=== PATIENT | female | born 2005 | race Caucasian/White ===

== ENCOUNTER 2025-05-31 15:44 | Inpatient (IN) | payer OTHER ==
[~2025-05-31 15:44] MED LIST: Iopamidol-370 76% 500 ML MDV (1 ML CHARGE) ONE
[2025-05-31] MEDS ORDERED: Acetaminophen 500 MG TAB ONE (17:06)
[2025-05-31] MEDS ORDERED: cefTRIAXone (ROCEPHIN) 1 GM VIAL ONE (17:06)
[2025-05-31] MEDS ORDERED: Ketorolac Tromethamine 30 MG (1 mL) VIAL ONE ×2 (17:12→20:12)
[2025-05-31 17:20] LABS: #Basophils Less than 0.03 10x3/uL (0.0-0.2); #Eosinophils Less than 0.03 10x3/uL (0.0-0.7); #Monocytes 1.64 10x3/uL (0.11-0.59); #Neutrophils 13.68 10x3/uL (1.40-6.50); %Basophils 0.1 % (0.0-1.0); %Eosinophils 0.0 % (0.0-10.0); %Lymphocytes 7.0 % (28.0-48.0); %Monocytes 9.9 % (0.0-4.0); %Neutrophils 82.3 % (31.0-61.0); Hematocrit 38.6 % (36.0-47.0); Hemoglobin 13.5 g/dL (12.0-16.0); Mean Corpuscular Hemoglobin 31.8 pg (25.0-35.0); Mean Corpuscular Volume 90.8 fL (78.0-98.0); Platelet Count 288 10x3/uL (130-400); Red Blood Cell (RBC) Count 4.25 mill/uL (4.00-5.20); White Blood Cell (WBC) Count 16.62 10x3/uL (4.8-10.8)
[2025-05-31 17:33] LABS: Pregnancy Test - Urine (BHCG) Negative (Negative); Pregu Control Background? CLEAR/WHITE (CLR/WHITE); Pregu Control Bar Appear? YES (CONTROL BAR)
[2025-05-31 17:34] LABS: CAUTI Indications for Culture Dysuria,urgency,freq; Glucose, Urine (Dipstick) Normal (Negative); Leukocyte 500 Leu/uL (Negative); Protein, Urine (Dipstick) 50 mg/dL (Neg-Trace); Specific Gravity, Urine 1.015 (1.002-1.036); WBC/HPF Greater than 50 HPF (0-3)
[2025-05-31 17:34] LABS: ALT (SGPT) 47 U/L (Less than 34); AST (SGOT) 30 U/L (11-34); Albumin 4.4 g/dL (3.1-4.5); Alkaline Phosphatase 83 U/L (40-100); Anion Gap 13 mmol/L (10-20); BUN (Urea Nitrogen) 9 mg/dL (7.0-18.7); Bilirubin, Total 2.2 mg/dL (0.3-1.2); Calc. Creatinine Clearance 0 mL/min (70-130); Calcium 9.6 mg/dL (7.8-10.44); Carbon Dioxide 22 mmol/L (22-29); Chloride 103 mmol/L (98-107); Globulin 3.6 g/dL (2.4-3.5); Glucose 111 mg/dL (70-105); Potassium 3.4 mmol/L (3.5-5.1); Sodium 135 mmol/L (136-145)
[2025-05-31 17:35] LABS: Bacteria/HPF 1+ HPF (None Seen)
[2025-05-31 17:36] LABS: Urine Culture Reflex Yes Yes
[2025-05-31] MEDS: VANCOMYCIN 1.75 GM/350 ML Premix BAG IVPB SCH (23:31)
[2025-05-31] MEDS: Acetaminophen 325 MG TAB PO PRN (23:38)
[2025-05-31] MEDS: cefTRIAXone\\ROCEPHIN 1 GM in Sodium Chloride 0.9% 100 ML IVPB SCH (23:39)
[2025-06-01] MEDS: Ondansetron PF 4 MG/2 ML Vial IVP PRN
[2025-06-01 04:12] LABS: Chlam.trachomatis by PCR,Urine *Indeterminate (NotDetected); GC N.gonorrhoeae PCR,UrineVOID *Indeterminate (NotDetected)
[2025-06-01 04:17] LABS: #Basophils 0.03 10x3/uL (0.0-0.2); #Eosinophils Less than 0.03 10x3/uL (0.0-0.7); #Monocytes 1.32 10x3/uL (0.11-0.59); #Neutrophils 18.15 10x3/uL (1.40-6.50); %Basophils 0.1 % (0.0-1.0); %Eosinophils 0.0 % (0.0-10.0); %Lymphocytes 5.3 % (28.0-48.0); %Monocytes 6.3 % (0.0-4.0); %Neutrophils 87.4 % (31.0-61.0); Hematocrit 33.4 % (36.0-47.0); Hemoglobin 11.1 g/dL (12.0-16.0); Mean Corpuscular Hemoglobin 31.5 pg (25.0-35.0); Mean Corpuscular Volume 94.9 fL (78.0-98.0); Platelet Count 255 10x3/uL (130-400); Red Blood Cell (RBC) Count 3.52 mill/uL (4.00-5.20); White Blood Cell (WBC) Count 20.79 10x3/uL (4.8-10.8)
[2025-06-01 04:30] LABS: Anion Gap 12 mmol/L (10-20); BUN (Urea Nitrogen) 5 mg/dL (7.0-18.7); Calc. Creatinine Clearance 0 mL/min (70-130); Calcium 8.5 mg/dL (7.8-10.44); Carbon Dioxide 17 mmol/L (22-29); Chloride 112 mmol/L (98-107); Glucose 118 mg/dL (70-105); Potassium 3.4 mmol/L (3.5-5.1); Sodium 138 mmol/L (136-145)
[2025-06-01 04:51] VITALS: BMI 30.2
[2025-06-01] MEDS ORDERED: Ketorolac Tromethamine 30 MG (1 mL) VIAL IM PRN (07:14)
[2025-06-01] MEDS: Ketorolac Tromethamine 30 MG (1 mL) VIAL IVP PRN (09:27)
[2025-06-01 16:02] LABS: HIV (1/2) Antibody/Antigen NONREACTIVE (NonReactive); HIV 1/2 INDEX 0.06 S/CO (<1.00)
[2025-06-01] MEDS: cefTRIAXone\\ROCEPHIN 2 GM in Sodium Chloride 0.9% 100 ML IVPB SCH (21:57)
[2025-06-02 01:19] LABS: Chlam.trachomatis by PCR,Urine Not Detected (NotDetected); GC N.gonorrhoeae PCR,UrineVOID Not Detected (NotDetected)
[2025-06-02 06:40] LABS: #Basophils 0.03 10x3/uL (0.0-0.2); #Eosinophils Less than 0.03 10x3/uL (0.0-0.7); #Monocytes 1.21 10x3/uL (0.11-0.59); #Neutrophils 10.13 10x3/uL (1.40-6.50); %Basophils 0.2 % (0.0-1.0); %Eosinophils 0.1 % (0.0-10.0); %Lymphocytes 12.7 % (28.0-48.0); %Monocytes 9.2 % (0.0-4.0); %Neutrophils 77.3 % (31.0-61.0); Hematocrit 34.2 % (36.0-47.0); Hemoglobin 11.4 g/dL (12.0-16.0); Mean Corpuscular Hemoglobin 31.1 pg (25.0-35.0); Mean Corpuscular Volume 93.2 fL (78.0-98.0); Platelet Count 254 10x3/uL (130-400); Red Blood Cell (RBC) Count 3.67 mill/uL (4.00-5.20); White Blood Cell (WBC) Count 13.10 10x3/uL (4.8-10.8)
[2025-06-02 06:54] LABS: Anion Gap 10 mmol/L (10-20); BUN (Urea Nitrogen) 7 mg/dL (7.0-18.7); Calc. Creatinine Clearance 203 mL/min (70-130); Calcium 8.9 mg/dL (7.8-10.44); Carbon Dioxide 20 mmol/L (22-29); Chloride 110 mmol/L (98-107); Glucose 99 mg/dL (70-105); Potassium 3.4 mmol/L (3.5-5.1); Sodium 137 mmol/L (136-145)
[2025-06-03 05:58] LABS: #Basophils 0.03 10x3/uL (0.0-0.2); #Eosinophils Less than 0.03 10x3/uL (0.0-0.7); #Monocytes 0.73 10x3/uL (0.11-0.59); #Neutrophils 4.87 10x3/uL (1.40-6.50); %Basophils 0.4 % (0.0-1.0); %Eosinophils 0.1 % (0.0-10.0); %Lymphocytes 19.7 % (28.0-48.0); %Monocytes 10.3 % (0.0-4.0); %Neutrophils 68.9 % (31.0-61.0); Hematocrit 34.9 % (36.0-47.0); Hemoglobin 12.0 g/dL (12.0-16.0); Mean Corpuscular Hemoglobin 31.3 pg (25.0-35.0); Mean Corpuscular Volume 91.1 fL (78.0-98.0); Platelet Count 309 10x3/uL (130-400); Red Blood Cell (RBC) Count 3.83 mill/uL (4.00-5.20); White Blood Cell (WBC) Count 7.07 10x3/uL (4.8-10.8)
[2025-06-03 06:12] LABS: Anion Gap 13 mmol/L (10-20); BUN (Urea Nitrogen) 9 mg/dL (7.0-18.7); Calc. Creatinine Clearance 174 mL/min (70-130); Calcium 9.1 mg/dL (7.8-10.44); Carbon Dioxide 21 mmol/L (22-29); Chloride 109 mmol/L (98-107); Glucose 103 mg/dL (70-105); Potassium 3.5 mmol/L (3.5-5.1); Sodium 139 mmol/L (136-145)
[2025-06-03 12:05] VITALS: BP 107/71; TEMP 98.5
== END 2025-06-03 16:00 | disposition home or self-care (01) | DRG 872 ==
LOC: ERS 15:44 → OBSVTOIN 21:12 → 2NO 21:12 → SURG B 06-01 14:35
PROVIDERS: ADMIT Internal Medicine; ATTEND Internal Medicine
DX: A41.51 Sepsis due to Escherichia coli [E. coli] (principal); N13.6 Pyonephrosis; N10 Acute pyelonephritis; F10.90 Alcohol use, unspecified, uncomplicated; D64.9 Anemia, unspecified; E87.6 Hypokalemia
CPT/HCPCS: 36415; 74177; 80048; 80053; 81001; 81025; 83605; 85025; 87040; 87077; 87086; 87149; 87186; 87389; 87491; 87591; 87661; 93005; 96365; 96375; 96376; J0696; J1885; J2405; J3375; J7120; Q9967